=== PATIENT | male | born 1955 | race African-American/Black ===

== ENCOUNTER 2018-02-05 01:59 | Inpatient (IN) | payer MEDICARE, OTHER ==
[~2018-02-05] VITALS: Ht 170.2 cm; Wt 64.9 kg
[~2018-02-05 01:59] MED LIST: AMIT25TA9 PO; CYCLOBENZAPRINE PO; LIPITOR PO; LISINOPRIL; NEURONTIN PO
[2018-02-05] MEDS ORDERED: SODIUM CHLORIDE 0.9% 1,000 ML IV ONE (02:45)
[2018-02-05 02:57] LABS: BASOPHILS % 0.8 % (0.0-2.0); EOSINOPHILS % 1.1 % (0.0-5.0); HEMATOCRIT. 48.3 % (42.0-52.0); HEMOGLOBIN. 16.5 g/dL (14.0-18.0); LYMPHOCYTES % 16.2 % (20.0-50.0); MEAN CORPUSCULAR HEMOGLOBIN 29.8 pg (28.0-32.0); MEAN CORPUSCULAR VOLUME 87.1 fL (80.0-94.0); MEAN PLATELET VOLUME 8.4 fl (7.4-10.4); MONOCYTES % 4.5 % (2.0-8.0); NEUTROPHILS % 77.4 % (40.0-76.0); PLATELET 206 x1000/uL (130-400); RED BLOOD CELL COUNT 5.55 mill/uL (4.7-6.1); RED CELL DISTRIBUTION WIDTH 13.7 % (11.6-14.6)
[2018-02-05 03:04] LABS: CHLORIDE 109 mEq/L (98-107)
[2018-02-05 03:07] LABS: D-DIMER 1.74 mg/L FEU (<0.50); INR 1.1; PROTHROMBIN TIME 11.6 sec (9.4-11.6)
[2018-02-05 03:13] LABS: CREATINE KINASE 176 IU/L (39-308)
[2018-02-05] MEDS ORDERED: CEFTRIAXONE 1 G PREMIX 50 ML IV ONE (04:15)
[2018-02-05] MEDS ORDERED: AZITHROMYCIN 500 MG in DEXT 5% WATER 250 ML IV ONE (04:15)
[2018-02-05] MEDS ORDERED: ENOXAPARIN 80MG/0.8ML SYR SUBCUT ONE (04:45)
[2018-02-05 08:00] VITALS: BP 119/75
[2018-02-05] MEDS ORDERED: GABA600T PO (08:49)
[2018-02-05] MEDS ORDERED: ATOR80TA MT (08:49)
[2018-02-05] MEDS ORDERED: AMIT25TA9 PO (08:49)
[2018-02-05] MEDS ORDERED: AMLO2.5T45 PO (08:49)
[2018-02-05] MEDS ORDERED: LISI40TA4 MT (08:49)
[2018-02-05] MEDS ORDERED: CYCL10TA7 MT (08:49)
[2018-02-05] MEDS ORDERED: GUAIFENESIN 200MG/10ML SUGAR FREE UDC PO PRN (09:15)
[2018-02-05] MEDS ORDERED: IPRATROPIUM/ALBUTEROL 0.5-3(2.5)MG/3ML NEB INH PRN (09:15)
[2018-02-05] MEDS ORDERED: ONDANSETRON HCL 4MG/2ML VIAL IV PRN (09:15)
[2018-02-05] MEDS ORDERED: MAGNESIUM/ALUMINUM HYDROXIDE/SIMETHICONE 30ML UDC PO PRN (09:15)
[2018-02-05] MEDS ORDERED: DIPHENHYDRAMINE 50MG/ML VIAL IV PRN (09:15)
[2018-02-05] MEDS ORDERED: CLONIDINE 0.1MG TABLET PO PRN (09:15)
[2018-02-05 09:20] VITALS: BP 119/75
[2018-02-05] MEDS: ACETAMINOPHEN 325MG TABLET PO PRN ×2 (09:37→22:51)
[2018-02-05] MEDS: GABAPENTIN 400MG CAPSULE PO SCH ×3 (09:37→21:08)
[2018-02-05] MEDS: AMLODIPINE 5MG TABLET PO SCH (09:38)
[2018-02-05] MEDS: LISINOPRIL 40MG TABLET PO SCH (09:38)
[2018-02-05] MEDS ORDERED: HYDR-4009 MT (09:42)
[2018-02-05] MEDS: BUDESONIDE 0.5MG/2ML NEB HHN SCH ×2 (11:47→20:12)
[2018-02-05] MEDS: IPRATROPIUM/ALBUTEROL 0.5-3(2.5)MG/3ML NEB HHN SCH ×3 (11:47→20:13)
[2018-02-05 12:00] VITALS: BP 107/66
[2018-02-05] MEDS: LEVOFLOXACIN 500MG PREMIX 100 ML IV SCH (12:39)
[2018-02-05] MEDS: HYDROCODONE/ACETAMINOPHEN 10/325MG TABLET PO PRN ×2 (14:44→22:48)
[2018-02-05] MEDS: SODIUM CHLORIDE 0.9% INJ 3ML FLUSH IVF SCH ×2 (14:49→21:09)
[2018-02-05 16:00] VITALS: BP 107/67
[2018-02-05] MEDS: PANTOPRAZOLE SODIUM 40 MG/VIAL IV SCH (18:23)
[2018-02-05 18:27] LABS: CLARITY URINE CLEAR (CLEAR); COLOR URINE YELLOW (YELLOW); KETONES URINE NEGATIVE (NEGATIVE); LEUKOCYTE ESTERASE URINE NEGATIVE (NEGATIVE); NITRITE URINE NEGATIVE (NEGATIVE); OCCULT BLOOD URINE NEGATIVE (NEGATIVE); PH URINE 5.5 (4.5-8.0); PROTEIN URINE NEGATIVE (NEGATIVE); SPECIFIC GRAVITY URINE 1.011 (1.005-1.030); UROBILINOGEN URINE 0.2 E.U./dL (0.2-1.0)
[2018-02-05 18:44] LABS: *AMPHETAMINES SCREEN URINE NEGATIVE (NEGATIVE); *BARBITURATES SCREEN URINE NEGATIVE (NEGATIVE); *BENZODIAZEPINES SCREEN URINE NEGATIVE (NEGATIVE); *COCAINE SCREEN URINE NEGATIVE (NEGATIVE)
[2018-02-05 18:45] LABS: CANNABINOID URINE SCREEN NEGATIVE (NEGATIVE); METHADONE URINE SCREEN NEGATIVE (NEGATIVE); OPIATES URINE SCREEN PRESUMTIVE POSITIVE (NEGATIVE); PHENCYCLIDINE URINE SCREEN NEGATIVE (NEGATIVE)
[2018-02-05 20:00] VITALS: BP 110/73
[2018-02-05] MEDS: METRONIDAZOLE 500 MG PREMIX 100 ML IV SCH (20:20)
[2018-02-05] MEDS: GUAIFENESIN 600MG ER TABLET PO SCH (21:07)
[2018-02-05] MEDS: CYCLOBENZAPRINE 10MG TABLET PO SCH (21:08)
[2018-02-05] MEDS: AMITRIPTYLINE 50MG TABLET PO SCH (21:08)
[2018-02-05] MEDS: ATORVASTATIN CALCIUM 40MG TABLET PO SCH (21:08)
[2018-02-06] VITALS: BP 97/64
[2018-02-06] MEDS: ACETYLCYSTEINE 100MG/ML 10% VIAL 4ML INH SCH ×2 (00:19→08:51)
[2018-02-06 04:00] VITALS: BP 99/57
[2018-02-06] MEDS: METRONIDAZOLE 500 MG PREMIX 100 ML IV SCH ×3 (04:05→20:54)
[2018-02-06] MEDS: IPRATROPIUM/ALBUTEROL 0.5-3(2.5)MG/3ML NEB HHN SCH ×5 (04:05→18:00)
[2018-02-06] MEDS: GABAPENTIN 400MG CAPSULE PO SCH ×3 (06:05→21:05)
[2018-02-06] MEDS: SODIUM CHLORIDE 0.9% INJ 3ML FLUSH IVF SCH ×3 (06:05→21:05)
[2018-02-06 07:49] VITALS: BP 85/55
[2018-02-06] MEDS: BUDESONIDE 0.5MG/2ML NEB HHN SCH (08:51)
[2018-02-06] MEDS: AMLODIPINE 5MG TABLET PO SCH (09:00)
[2018-02-06] MEDS: LISINOPRIL 40MG TABLET PO SCH (09:00)
[2018-02-06] MEDS: GUAIFENESIN 600MG ER TABLET PO SCH ×2 (09:05→20:55)
[2018-02-06] MEDS: PANTOPRAZOLE SODIUM 40 MG/VIAL IV SCH ×2 (09:05→20:54)
[2018-02-06] MEDS: ASPIRIN 81MG TABLET PO SCH (09:06)
[2018-02-06 12:01] VITALS: BP 117/77
[2018-02-06] MEDS: LEVOFLOXACIN 500MG PREMIX 100 ML IV SCH (14:28)
[2018-02-06 16:07] VITALS: BP 119/70
[2018-02-06] MEDS: ACETAMINOPHEN 325MG TABLET PO PRN (17:06)
[2018-02-06 20:00] VITALS: BP 103/62
[2018-02-06] MEDS: ATORVASTATIN CALCIUM 40MG TABLET PO SCH (20:54)
[2018-02-06] MEDS: AMITRIPTYLINE 50MG TABLET PO SCH (20:55)
[2018-02-06] MEDS: CYCLOBENZAPRINE 10MG TABLET PO SCH (20:55)
[2018-02-06] MEDS: HYDROCODONE/ACETAMINOPHEN 10/325MG TABLET PO PRN (21:05)
[2018-02-07] VITALS: BP 97/67
[2018-02-07] MEDS: ACETYLCYSTEINE 100MG/ML 10% VIAL 4ML INH SCH ×4 (00:04→21:25)
[2018-02-07] MEDS: BUDESONIDE 0.5MG/2ML NEB HHN SCH ×3 (00:04→21:23)
[2018-02-07] MEDS: IPRATROPIUM/ALBUTEROL 0.5-3(2.5)MG/3ML NEB HHN SCH ×4 (00:05→21:25)
[2018-02-07 04:00] VITALS: BP 107/69
[2018-02-07] MEDS: METRONIDAZOLE 500 MG PREMIX 100 ML IV SCH ×3 (04:51→21:51)
[2018-02-07] MEDS: GABAPENTIN 400MG CAPSULE PO SCH ×3 (06:08→21:55)
[2018-02-07] MEDS: SODIUM CHLORIDE 0.9% INJ 3ML FLUSH IVF SCH ×3 (06:08→21:55)
[2018-02-07 08:00] VITALS: BP 99/64
[2018-02-07] MEDS: GUAIFENESIN 600MG ER TABLET PO SCH ×2 (08:21→21:52)
[2018-02-07] MEDS: ASPIRIN 81MG TABLET PO SCH (08:22)
[2018-02-07] MEDS: PANTOPRAZOLE SODIUM 40 MG/VIAL IV SCH ×2 (08:22→21:52)
[2018-02-07] MEDS: AMLODIPINE 5MG TABLET PO SCH (08:29)
[2018-02-07] MEDS: LISINOPRIL 40MG TABLET PO SCH (08:30)
[2018-02-07] MEDS: LEVOFLOXACIN 500MG PREMIX 100 ML IV SCH (11:49)
[2018-02-07 12:00] VITALS: BP 118/79
[2018-02-07] MEDS: BENZONATATE 100MG CAPSULE PO SCH ×2 (16:10→21:55)
[2018-02-07] MEDS: ACETAMINOPHEN 325MG TABLET PO PRN (17:09)
[2018-02-07 20:00] VITALS: BP 111/66
[2018-02-07] MEDS: ATORVASTATIN CALCIUM 40MG TABLET PO SCH (21:52)
[2018-02-07] MEDS: HYDROCODONE/ACETAMINOPHEN 10/325MG TABLET PO PRN (21:54)
[2018-02-07] MEDS: AMITRIPTYLINE 50MG TABLET PO SCH (21:55)
[2018-02-07] MEDS: CYCLOBENZAPRINE 10MG TABLET PO SCH (21:55)
[2018-02-08] VITALS: BP 109/71
[2018-02-08] MEDS: IPRATROPIUM/ALBUTEROL 0.5-3(2.5)MG/3ML NEB HHN SCH ×5 (01:58→21:14)
[2018-02-08 04:00] VITALS: BP 108/69
[2018-02-08] MEDS: METRONIDAZOLE 500 MG PREMIX 100 ML IV SCH ×3 (04:59→20:38)
[2018-02-08] MEDS: SODIUM CHLORIDE 0.9% INJ 3ML FLUSH IVF SCH ×3 (05:00→22:02)
[2018-02-08] MEDS: BENZONATATE 100MG CAPSULE PO SCH ×3 (05:03→22:02)
[2018-02-08] MEDS: GABAPENTIN 400MG CAPSULE PO SCH ×3 (05:03→22:02)
[2018-02-08 08:00] VITALS: BP 120/74
[2018-02-08] MEDS: BUDESONIDE 0.5MG/2ML NEB HHN SCH (09:08)
[2018-02-08] MEDS: ACETYLCYSTEINE 100MG/ML 10% VIAL 4ML INH SCH (09:08)
[2018-02-08] MEDS: ASPIRIN 81MG TABLET PO SCH (09:49)
[2018-02-08] MEDS: AMLODIPINE 5MG TABLET PO SCH (09:50)
[2018-02-08] MEDS: LISINOPRIL 40MG TABLET PO SCH (09:50)
[2018-02-08] MEDS: PANTOPRAZOLE SODIUM 40 MG/VIAL IV SCH ×2 (09:50→20:38)
[2018-02-08] MEDS: GUAIFENESIN 600MG ER TABLET PO SCH ×2 (09:50→20:38)
[2018-02-08] MEDS: HYDROCODONE/ACETAMINOPHEN 10/325MG TABLET PO PRN (09:51)
[2018-02-08 12:00] VITALS: BP 117/74
[2018-02-08] MEDS: LEVOFLOXACIN 500MG PREMIX 100 ML IV SCH (13:17)
[2018-02-08 16:00] VITALS: BP 131/80
[2018-02-08] MEDS: ACETAMINOPHEN 325MG TABLET PO PRN (18:01)
[2018-02-08 20:24] VITALS: BP 118/76
[2018-02-08] MEDS: AMITRIPTYLINE 50MG TABLET PO SCH (20:38)
[2018-02-08] MEDS: CYCLOBENZAPRINE 10MG TABLET PO SCH (20:38)
[2018-02-08] MEDS: ATORVASTATIN CALCIUM 40MG TABLET PO SCH (20:38)
[2018-02-09] VITALS: BP 122/72
[2018-02-09] MEDS: ACETYLCYSTEINE 100MG/ML 10% VIAL 4ML INH SCH ×4 (02:00→15:18)
[2018-02-09] MEDS: IPRATROPIUM/ALBUTEROL 0.5-3(2.5)MG/3ML NEB HHN SCH ×4 (02:00→15:18)
[2018-02-09 04:00] VITALS: BP 129/77
[2018-02-09] MEDS: METRONIDAZOLE 500 MG PREMIX 100 ML IV SCH ×3 (04:01→20:16)
[2018-02-09] MEDS: ACETAMINOPHEN 325MG TABLET PO PRN ×2 (04:02→16:33)
[2018-02-09] MEDS: GABAPENTIN 400MG CAPSULE PO SCH ×3 (06:18→22:52)
[2018-02-09] MEDS: BENZONATATE 100MG CAPSULE PO SCH ×3 (06:18→22:52)
[2018-02-09] MEDS: SODIUM CHLORIDE 0.9% INJ 3ML FLUSH IVF SCH ×3 (06:19→22:52)
[2018-02-09 06:46] LABS: BASOPHILS % 0.3 % (0.0-2.0); EOSINOPHILS % 1.1 % (0.0-5.0); HEMATOCRIT. 36.1 % (42.0-52.0); HEMOGLOBIN. 12.6 g/dL (14.0-18.0); LYMPHOCYTES % 10.3 % (20.0-50.0); MEAN CORPUSCULAR HEMOGLOBIN 29.5 pg (28.0-32.0); MEAN CORPUSCULAR VOLUME 84.5 fL (80.0-94.0); MEAN PLATELET VOLUME 9.2 fl (7.4-10.4); MONOCYTES % 8.2 % (2.0-8.0); NEUTROPHILS % 80.1 % (40.0-76.0); PLATELET 179 x1000/uL (130-400); RED BLOOD CELL COUNT 4.27 mill/uL (4.7-6.1); RED CELL DISTRIBUTION WIDTH 13.2 % (11.6-14.6)
[2018-02-09 06:56] LABS: CHLORIDE 102 mEq/L (98-107)
[2018-02-09 07:02] LABS: PHOSPHORUS 2.8 mg/dL (2.5-4.9)
[2018-02-09 08:00] VITALS: BP 122/80
[2018-02-09] MEDS: PANTOPRAZOLE SODIUM 40 MG/VIAL IV SCH ×2 (08:31→20:16)
[2018-02-09] MEDS: GUAIFENESIN 600MG ER TABLET PO SCH ×2 (08:31→20:17)
[2018-02-09] MEDS: ASPIRIN 81MG TABLET PO SCH (08:32)
[2018-02-09] MEDS: AMLODIPINE 5MG TABLET PO SCH (08:42)
[2018-02-09] MEDS: LISINOPRIL 40MG TABLET PO SCH (08:42)
[2018-02-09 12:00] VITALS: BP 99/72
[2018-02-09] MEDS: LEVOFLOXACIN 500MG PREMIX 100 ML IV SCH (12:16)
[2018-02-09 16:00] VITALS: BP 108/73
[2018-02-09 20:00] VITALS: BP 119/72
[2018-02-09] MEDS: CYCLOBENZAPRINE 10MG TABLET PO SCH (20:17)
[2018-02-09] MEDS: ATORVASTATIN CALCIUM 40MG TABLET PO SCH (20:17)
[2018-02-09] MEDS: AMITRIPTYLINE 50MG TABLET PO SCH (20:17)
[2018-02-09] MEDS: HYDROCODONE/ACETAMINOPHEN 10/325MG TABLET PO PRN (21:13)
[2018-02-10] VITALS: BP 110/69
[2018-02-10] MEDS: ACETYLCYSTEINE 100MG/ML 10% VIAL 4ML INH SCH (01:09)
[2018-02-10] MEDS: METRONIDAZOLE 500 MG PREMIX 100 ML IV SCH ×3 (04:41→20:00)
[2018-02-10 05:00] VITALS: BP 107/71
[2018-02-10] MEDS: GABAPENTIN 400MG CAPSULE PO SCH ×3 (06:14→20:56)
[2018-02-10] MEDS: SODIUM CHLORIDE 0.9% INJ 3ML FLUSH IVF SCH ×3 (06:14→22:00)
[2018-02-10] MEDS: BENZONATATE 100MG CAPSULE PO SCH ×2 (06:14→13:07)
[2018-02-10] MEDS: HYDROCODONE/ACETAMINOPHEN 10/325MG TABLET PO PRN (07:52)
[2018-02-10 08:00] VITALS: BP_SYST 122; BP_SYST 157; BP_DIAS 72; BP_DIAS 77
[2018-02-10] MEDS: AMLODIPINE 5MG TABLET PO SCH (09:00)
[2018-02-10] MEDS: LISINOPRIL 40MG TABLET PO SCH (09:00)
[2018-02-10] MEDS: GUAIFENESIN 600MG ER TABLET PO SCH (09:04)
[2018-02-10] MEDS: ASPIRIN 81MG TABLET PO SCH (09:04)
[2018-02-10] MEDS: PANTOPRAZOLE SODIUM 40 MG/VIAL IV SCH ×2 (09:04→21:00)
[2018-02-10 12:00] VITALS: BP 104/66
[2018-02-10] MEDS ORDERED: MAGNESIUM 2 G PREMIX 50 ML IV SCH (12:00)
[2018-02-10] MEDS: LEVOFLOXACIN 500MG PREMIX 100 ML IV SCH (13:06)
[2018-02-10] MEDS ORDERED: GUAIFENESIN/CODEINE 100-10MG/5ML UDC PO PRN (13:45)
[2018-02-10] MEDS ORDERED: BENZONATATE 100MG CAPSULE PO PRN (13:45)
[2018-02-10 20:00] VITALS: BP 130/71
[2018-02-10] MEDS: IPRATROPIUM/ALBUTEROL 0.5-3(2.5)MG/3ML NEB HHN SCH (20:56)
[2018-02-10] MEDS: CYCLOBENZAPRINE 10MG TABLET PO SCH (20:56)
[2018-02-10] MEDS: AMITRIPTYLINE 50MG TABLET PO SCH (20:56)
[2018-02-10] MEDS: ATORVASTATIN CALCIUM 40MG TABLET PO SCH (20:57)
[2018-02-10] MEDS ORDERED: HYDROCODONE/ACETAMINOPHEN 10/325MG TABLET PO PRN (21:45)
[2018-02-11] VITALS: BP 107/76
[2018-02-11] MEDS: IPRATROPIUM/ALBUTEROL 0.5-3(2.5)MG/3ML NEB HHN SCH (01:09)
== END 2018-02-11 05:35 | disposition left against medical advice (07) | DRG 871 ==
LOC: ER 01:59 → 5WST 04:40 → EDBEDREQ 05:01 → ENRESERV 07:08 → 5WST 16:54
PROVIDERS: ADMIT Internal Medicine; ATTEND Internal Medicine
DX: A41.9 Sepsis, unspecified organism (principal); J96.00 Acute respiratory failure, unspecified whether with hypoxia or hypercapnia; J18.1 Lobar pneumonia, unspecified organism; J44.0 Chronic obstructive pulmonary disease with (acute) lower respiratory infection; I69.354 Hemiplegia and hemiparesis following cerebral infarction affecting left non-dominant side; M48.061 Spinal stenosis, lumbar region without neurogenic claudication; I10 Essential (primary) hypertension; K21.9 Gastro-esophageal reflux disease without esophagitis; M48.02 Spinal stenosis, cervical region; B19.20 Unspecified viral hepatitis C without hepatic coma; Z53.21 Procedure and treatment not carried out due to patient leaving prior to being seen by health care provider; E78.00 Pure hypercholesterolemia, unspecified; F17.200 Nicotine dependence, unspecified, uncomplicated; G89.29 Other chronic pain; Z98.1 Arthrodesis status; Z79.899 Other long term (current) drug therapy
CPT/HCPCS: 36415; 71045; 71250; 78582; 80048; 80053; 80305; 81003; 82550; 83735; 83880; 84100; 84484; 85025; 85379; 85610; 87040; 93005; 93970; 94640; 96365; 96368; 96375; 99291; A9558; C9113; J0456; J0696; J1650; J1956; J3475; J3490; J7030; J7050; J7060; J7608; J7620; J7626

== ENCOUNTER 2021-08-07 10:17 | Inpatient (IN) | payer MEDICARE, OTHER ==
[~2021-08-07] VITALS: Ht 172.7 cm; Wt 71.7 kg
[2021-08-07] VITALS (41 sets, daily range): BP systolic 84–130; BP diastolic 52–80
[~2021-08-07 10:17] MED LIST changes: +AMLO2.5T45 PO; +ATOR80TA MT; +CYCL10TA7 MT; -CYCLOBENZAPRINE PO; +ETOMIDATE 2MG/ML 10ML VIAL IV ONE; +GABA600T PO; +HYDR-4009 MT; -LIPITOR PO; +LISI40TA13 MT; -LISINOPRIL; -NEURONTIN PO; +SUCCINYLCHOLINE CHLORIDE 200MG/10ML IV ONE
[2021-08-07] MEDS ORDERED: PANTOPRAZOLE SODIUM 40 MG/VIAL IV STA (10:23)
[2021-08-07] MEDS ORDERED: PANTOPRAZOLE 80 MG in SODIUM CHLORIDE 0.9% 100 ML IV STA (10:23)
[2021-08-07] MEDS ORDERED: SODIUM CHLORIDE 0.9% 1,000 ML IV ONE (10:30)
[2021-08-07] MEDS ORDERED: NOREPINEPHRINE 8 MG in DEXT 5% WATER 242 ML IV STA ×2 (10:31→10:37)
[2021-08-07] MEDS ORDERED: NOREPINEPHRINE 8MG/250ML PMX 250 ML IV ONE (10:49)
[2021-08-07 11:35] LABS: HEMATOCRIT. 36.3 % (42.0-52.0); HEMOGLOBIN. 11.8 g/dL (14.0-18.0); MEAN CORPUSCULAR HEMOGLOBIN 28.8 pg (28.0-32.0); MEAN CORPUSCULAR VOLUME 88.6 fL (80.0-94.0); MEAN PLATELET VOLUME 8.7 fl (7.4-10.4); PLATELET 558 x1000/uL (130-400); RED BLOOD CELL COUNT 4.09 mill/uL (4.7-6.1); RED CELL DISTRIBUTION WIDTH 14.6 % (11.6-14.6)
[2021-08-07 11:45] LABS: INR 1.3; PROTHROMBIN TIME 13.9 sec (9.6-11.0)
[2021-08-07] MEDS ORDERED: PROPOFOL 10MG/ML 100ML 100 ML IV ONE (11:45)
[2021-08-07 11:51] LABS: CHLORIDE 104 mEq/L (98-107)
[2021-08-07] MEDS ORDERED: PIPERACILLIN/TAZ 3.375G PREMIX 50 ML IV NR (11:59)
[2021-08-07 13:31] LABS: PLATELET ESTIMATE INCREASED
[2021-08-07] MEDS ORDERED: FENTANYL CITRATE/PF 2,500 MCG in SODIUM CHLORIDE 0.9% 200 ML IV PRN ×2 (14:00→18:15)
[2021-08-07 14:22] LABS: BG BASE EXCESS -5.1 mmol/L (-2.0-2.0); BG CARBOXYHEMOGLOBIN 2.7 % (0.5-1.5); BG DEOXYHEMOGLOBIN 0.3 % (0.0-5.0); BG FRACTION INSPIRED OXYGEN 100; BG HCO3 ACT 22.5 mmol/L (22.0-26.0); BG METHEMOGLOBIN 0.3 % (0.0-1.5); BG OXYGEN SATURATION 99.7 % (92.0-98.5); BG OXYHEMOGLOBIN 96.7 % (94.0-97.0); BG PH 7.254 (7.350-7.450); BG PO2 333.9 mmHg (75.0-100.0); BG SAMPLE SITE RIGHT RADIAL; BG TOTAL HEMOGLOBIN 13.8 g/dL (12.0-18.0); BG VENT MODE VENT - AC
[2021-08-07 15:34] LABS: CLARITY URINE CLEAR (CLEAR); COLOR URINE YELLOW (YELLOW); KETONES URINE NEGATIVE (NEGATIVE); LEUKOCYTE ESTERASE URINE NEGATIVE (NEGATIVE); NITRITE URINE NEGATIVE (NEGATIVE); OCCULT BLOOD URINE 2+ (NEGATIVE); PH URINE 5.5 (4.5-8.0); PROTEIN URINE 1+ (NEGATIVE); SPECIFIC GRAVITY URINE 1.017 (1.005-1.030); UROBILINOGEN URINE 0.2 E.U./dL (0.2-1.0)
[2021-08-07] MEDS ORDERED: DOCUSATE SODIUM SUGAR FREE 100MG/10ML UDC NG SCH (16:00)
[2021-08-07] MEDS ORDERED: IPRATROPIUM/ALBUTEROL 0.5-3(2.5)MG/3ML NEB HHN PRN (17:15)
[2021-08-07 19:02] LABS: *AMPHETAMINES SCREEN URINE NEGATIVE (NEGATIVE); *COCAINE SCREEN URINE NEGATIVE (NEGATIVE)
[2021-08-07 19:03] LABS: *BENZODIAZEPINES SCREEN URINE PRESUMTIVE POSITIVE (NEGATIVE); CANNABINOID URINE SCREEN NEGATIVE (NEGATIVE); METHADONE URINE SCREEN NEGATIVE (NEGATIVE); OPIATES URINE SCREEN PRESUMTIVE POSITIVE (NEGATIVE); PHENCYCLIDINE URINE SCREEN NEGATIVE (NEGATIVE)
[2021-08-07 19:12] LABS: *BARBITURATES SCREEN URINE NEGATIVE (NEGATIVE)
[2021-08-07 19:13] LABS: HEPATITIS B SURFACE ANTIGEN NEGATIVE
[2021-08-07] MEDS: PHENYLEPHRINE 100 MG in DEXT 5% WATER 240 ML IV PRN (20:33)
[2021-08-07] MEDS ORDERED: ACETAMINOPHEN 325MG TABLET PO PRN (21:30)
[2021-08-07] MEDS ORDERED: ONDANSETRON HCL 4MG/2ML INJ IV PRN (21:30)
[2021-08-07] MEDS ORDERED: PANTOPRAZOLE SODIUM 40 MG/VIAL IV SCH (21:42)
[2021-08-07] MEDS ORDERED: PIPERACILLIN/TAZOBACTAM 3.375 G in DEXTROSE 5% WATER 50 ML IV SCH (22:00)
[2021-08-07] MEDS: IPRATROPIUM/ALBUTEROL 0.5-3(2.5)MG/3ML NEB HHN SCH (22:17)
[2021-08-07] MEDS: PANTOPRAZOLE SODIUM 40 MG/VIAL IV SCH (22:54)
[2021-08-07] MEDS ORDERED: CEFTRIAXONE 1,000 MG in DEXTROSE 5% WATER 50 ML IV SCH (23:00)
[2021-08-08] VITALS (67 sets, daily range): BP systolic 49–158; BP diastolic 18–83
[2021-08-08 00:52] LABS: HEMATOCRIT 43.9 % (42.0-52.0); HEMOGLOBIN 14.5 g/dL (14.0-18.0)
[2021-08-08] MEDS: IPRATROPIUM/ALBUTEROL 0.5-3(2.5)MG/3ML NEB HHN SCH ×3 (01:59→15:54)
[2021-08-08 02:35] LABS: BG BASE EXCESS -9.4 mmol/L (-2.0-2.0); BG CARBOXYHEMOGLOBIN 2.6 % (0.5-1.5); BG DEOXYHEMOGLOBIN 17.1 % (0.0-5.0); BG FRACTION INSPIRED OXYGEN 40; BG METHEMOGLOBIN 0.2 % (0.0-1.5); BG OXYGEN SATURATION 82.4 % (92.0-98.5); BG OXYHEMOGLOBIN 80.1 % (94.0-97.0); BG PH 7.156 (7.350-7.450); BG PO2 50.7 mmHg (75.0-100.0); BG SAMPLE SITE RIGHT BRACHIAL; BG TOTAL HEMOGLOBIN 14.9 g/dL (12.0-18.0); BG VENT MODE VENT - AC
[2021-08-08] MEDS: NOREPINEPHRINE 8 MG in DEXT 5% WATER 242 ML IV PRN ×5 (03:00→16:31)
[2021-08-08] MEDS ORDERED: VASOPRESSIN 20 UNIT in SODIUM CHLORIDE 0.9% 99 ML IV PRN (03:30)
[2021-08-08] MEDS ORDERED: PIPERACILLIN/TAZOBACTAM 3.375 G in DEXTROSE 5% WATER 50 ML IV SCH (06:00)
[2021-08-08 06:18] LABS: HEMOGLOBIN. 15.2 g/dL (14.0-18.0); MEAN CORPUSCULAR HEMOGLOBIN 30.8 pg (28.0-32.0); MEAN CORPUSCULAR VOLUME 89.3 fL (80.0-94.0); MEAN PLATELET VOLUME 9.4 fl (7.4-10.4); PLATELET 414 x1000/uL (130-400); RED BLOOD CELL COUNT 4.93 mill/uL (4.7-6.1); RED CELL DISTRIBUTION WIDTH 15.1 % (11.6-14.6)
[2021-08-08 06:35] LABS: FOLIC ACID (FOLATE) SERUM 19.9 ng/mL (>5.38)
[2021-08-08 06:45] LABS: INR 1.4; PROTHROMBIN TIME 14.4 sec (9.6-11.0)
[2021-08-08] MEDS: PANTOPRAZOLE SODIUM 40 MG/VIAL IV SCH (08:13)
[2021-08-08 08:29] LABS: BG BASE EXCESS -11.5 mmol/L (-2.0-2.0); BG CARBOXYHEMOGLOBIN 2.3 % (0.5-1.5); BG DEOXYHEMOGLOBIN 7.6 % (0.0-5.0); BG HCO3 ACT 19.5 mmol/L (22.0-26.0); BG METHEMOGLOBIN 0.3 % (0.0-1.5); BG OXYGEN SATURATION 92.2 % (92.0-98.5); BG OXYHEMOGLOBIN 89.8 % (94.0-97.0); BG PCO2 65.9 mmHg (35.0-45.0); BG PH 7.088 (7.350-7.450); BG PO2 72.2 mmHg (75.0-100.0); BG SAMPLE SITE RIGHT BRACHIAL; BG TOTAL HEMOGLOBIN 15.3 g/dL (12.0-18.0); BG VENT MODE VENT - AC
[2021-08-08] MEDS: PHENYLEPHRINE 100 MG in DEXT 5% WATER 240 ML IV PRN (10:30)
[2021-08-08] MEDS ORDERED: METOCLOPRAMIDE HCL 10MG/2ML VIAL IV SCH (12:00)
[2021-08-08 12:37] LABS: BG BASE EXCESS -24.2 mmol/L (-2.0-2.0); BG CARBOXYHEMOGLOBIN 2.3 % (0.5-1.5); BG DEOXYHEMOGLOBIN 23.8 % (0.0-5.0); BG FRACTION INSPIRED OXYGEN 100; BG HCO3 ACT 11.2 mmol/L (22.0-26.0); BG METHEMOGLOBIN 0.2 % (0.0-1.5); BG OXYGEN SATURATION 75.6 % (92.0-98.5); BG OXYHEMOGLOBIN 73.7 % (94.0-97.0); BG PCO2 71.5 mmHg (35.0-45.0); BG PH 6.814 (7.350-7.450); BG PO2 50.4 mmHg (75.0-100.0); BG SAMPLE SITE LEFT BRACHIAL; BG TOTAL HEMOGLOBIN 15.1 g/dL (12.0-18.0); BG TOTAL RESPIRATORY RATE 36 b/min; BG VENT MODE VENT - AC
[2021-08-08] MEDS ORDERED: SODIUM BICARBONATE 8.4% 1 MEQ/ML 50ML SYR IV SCH (12:45)
[2021-08-08 12:53] LABS: HEMATOCRIT 46.2 % (42.0-52.0); HEMOGLOBIN 14.7 g/dL (14.0-18.0)
[2021-08-08] MEDS ORDERED: SODIUM BICARBONATE 8.4% 1 MEQ/ML 50ML SYR IV ONE (13:07)
[2021-08-08] MEDS: EPINEPHRINE 10 MG in SODIUM CHLORIDE 0.9% 240 ML IV PRN ×2 (13:33→16:31)
[2021-08-08] MEDS ORDERED: SODIUM BICARBONATE 150 MEQ in DEXTROSE 5% WATER 850 ML IV SCH (14:00)
[2021-08-08 16:30] LABS: HEMATOCRIT 44.9 % (42.0-52.0); HEMOGLOBIN 13.9 g/dL (14.0-18.0)
[2021-08-08 17:01] LABS: BG BASE EXCESS -22.3 mmol/L (-2.0-2.0); BG DEOXYHEMOGLOBIN 17.4 % (0.0-5.0); BG FRACTION INSPIRED OXYGEN 100; BG HCO3 ACT 10.5 mmol/L (22.0-26.0); BG METHEMOGLOBIN 0.2 % (0.0-1.5); BG OXYGEN SATURATION 82.2 % (92.0-98.5); BG OXYHEMOGLOBIN 80.4 % (94.0-97.0); BG PCO2 52.4 mmHg (35.0-45.0); BG PH 6.919 (7.350-7.450); BG PO2 54.8 mmHg (75.0-100.0); BG SAMPLE SITE LEFT BRACHIAL; BG TOTAL HEMOGLOBIN 14.5 g/dL (12.0-18.0); BG TOTAL RESPIRATORY RATE 40 b/min; BG VENT MODE VENT - AC
[2021-08-08 20:46] LABS: NUCLEATED RED BLOOD CELLS 3 /100 WBC; PLATELET ESTIMATE SLIGHTLY INCREASED
[2021-08-08] MEDS ORDERED: CEFTRIAXONE 1,000 MG in DEXTROSE 5% WATER 50 ML IV SCH (21:00)
== END 2021-08-08 17:00 | DRG 871 ==
LOC: ER 10:17 → MICUSO 11:19 → EDBEDREQ 11:23 → EDBEDREQSVC 11:23 → EDBEDREQTM 11:23 → ENRESERV 15:10
PROVIDERS: ADMIT Hospitalist; ATTEND Hospitalist
PROC: 5A1945Z Respiratory Ventilation, 24-96 Consecutive Hours (ICD-10-PCS; principal; 2021-08-07)
PROC: 06HY33Z Insertion of Infusion Device into Lower Vein, Percutaneous Approach (ICD-10-PCS; 2021-08-07)
PROC: 30233K1 Transfusion of Nonautologous Frozen Plasma into Peripheral Vein, Percutaneous Approach (ICD-10-PCS; 2021-08-07)
PROC: 30233N1 Transfusion of Nonautologous Red Blood Cells into Peripheral Vein, Percutaneous Approach (ICD-10-PCS; 2021-08-07)
PROC: 30233R1 Transfusion of Nonautologous Platelets into Peripheral Vein, Percutaneous Approach (ICD-10-PCS; 2021-08-07)
PROC: 0BH17EZ Insertion of Endotracheal Airway into Trachea, Via Natural or Artificial Opening (ICD-10-PCS; 2021-08-07)
DX: A41.9 Sepsis, unspecified organism (principal); E43 Unspecified severe protein-calorie malnutrition; G93.41 Metabolic encephalopathy; J69.0 Pneumonitis due to inhalation of food and vomit; J96.01 Acute respiratory failure with hypoxia; R65.21 Severe sepsis with septic shock; N17.9 Acute kidney failure, unspecified; K92.0 Hematemesis; D62 Acute posthemorrhagic anemia; R57.8 Other shock; E78.00 Pure hypercholesterolemia, unspecified; J44.9 Chronic obstructive pulmonary disease, unspecified; B19.20 Unspecified viral hepatitis C without hepatic coma; I50.9 Heart failure, unspecified; M48.02 Spinal stenosis, cervical region; Z20.822 Contact with and (suspected) exposure to COVID-19; E78.5 Hyperlipidemia, unspecified; K21.9 Gastro-esophageal reflux disease without esophagitis; I11.0 Hypertensive heart disease with heart failure; Z79.899 Other long term (current) drug therapy; Z86.73 Personal history of transient ischemic attack (TIA), and cerebral infarction without residual deficits; Z68.24 Body mass index [BMI] 24.0-24.9, adult; Z59.00 Homelessness unspecified
CPT/HCPCS: 36415; 36600; 71045; 76700; 80048; 80053; 80076; 80305; 81003; 82140; 82375; 82607; 82728; 82746; 82805; 82962; 83540; 83550; 83605; 83880; 84145; 84484; 85014; 85018; 85025; 86705; 86709; 86803; 86850; 86900; 86920; 86927; 87070; 87077; 87186; 87340; 87426; 87804; 93005; 93970; 94002; 94003; 94640; 99291; C9113; J0330; J0696; J2370; J2405; J2543; J2704; J2765; J3010; J3490; J7030; J7040; J7050; J7060; J7070; P9016; P9017; P9034; U0003; U0005; A4315